=== PATIENT | male | born 1955 | race Caucasian/White ===

== ENCOUNTER 2017-10-09 14:32 | Outpatient (CLI) | payer BC ==
--- NOTE | 2017-10-09 15:06 | ULT ---
LEFT LOWER EXTREMITY VENOUS DUPLEX SONOGRAM: HISTORY: Left leg pain and edema. FINDINGS: Internal echoes with lack of compressibility of the common femoral vein is apparent. Good color and spectral Doppler flow are present within the visualized portion of the greater saphenous vein, deep f emoral vein, femoral, popliteal, and posterior tibial veins. IMPRESSION: Abnormal exam. Deep vein thrombosis of the left leg is currently limited to the common femoral vein. Findings were called to at the office of Dr. Ellis at 1443 hours. CODE CR POS: ROBYN
== END 2017-10-09 14:33 | disposition home or self-care (01) ==
LOC: ULT 14:32
PROVIDERS: ATTEND Internal Medicine Hematology & Oncology
DX: C90.01 Multiple myeloma in remission (principal); I82.90 Acute embolism and thrombosis of unspecified vein; M79.605 Pain in left leg; R60.0 Localized edema

== ENCOUNTER 2019-05-23 14:22 | Outpatient (CLI) | payer BC ==
--- NOTE | 2019-05-24 15:09 | PFT ---
PATIENT HISTORY: HEIGHT: 73 in WEIGHT: 202 SMOKER: no HOW LONG: never PACKS PER DAY: PRODUCTIVE COUGH: LUNG DISEASE: PHYSICIAN INTERPRETATION PFT data: 05/23/19 The FEV1 and FVC are normal, although the FEV1/FVC ratio is slightly low, Residual Volume is low. Total lung capacity is normal. DLCO is normal. IMPRESSION: Normal study with Normal Gas exchange. Non Destructive Testing Engineer: LITO Last Code Striper: LITO JAMES
== END 2019-05-23 14:23 | disposition home or self-care (01) ==
LOC: CP 14:22
PROVIDERS: ATTEND Internal Medicine Hematology & Oncology
DX: C90.01 Multiple myeloma in remission (principal); C79.51 Secondary malignant neoplasm of bone
CPT/HCPCS: 94060; 94727; 94729

== ENCOUNTER 2019-05-24 13:42 | Outpatient (CLI) | payer BC | END 2019-05-24 13:43 | disposition home or self-care (01) | LOC: ULT 13:42 | PROVIDERS: ATTEND Internal Medicine Hematology & Oncology | DX: C90.01 Multiple myeloma in remission (principal); C79.51 Secondary malignant neoplasm of bone; I08.8 Other rheumatic multiple valve diseases | CPT/HCPCS: 93306 ==

== ENCOUNTER 2025-02-26 13:26 | Outpatient (CLI) | payer MEDICARE | END 2025-02-26 13:27 | disposition home or self-care (01) | LOC: BICRAD 13:26 | PROVIDERS: ATTEND Internal Medicine Hematology & Oncology | DX: N18.2 Chronic kidney disease, stage 2 (mild) (principal); C90.00 Multiple myeloma not having achieved remission; C79.51 Secondary malignant neoplasm of bone | CPT/HCPCS: 71046 ==